=== PATIENT | male | born 1970 | race Caucasian/White ===

== ENCOUNTER 2018-01-08 17:32 | Emergency (ER) | payer OTHER ==
[2018-01-08] MEDS: KETOROLAC 30 MG INJ IM (20:47)
== END 2018-01-08 22:05 | disposition home or self-care (01) ==
LOC: FTE 17:32
DX: S99.912A Unspecified injury of left ankle, initial encounter (principal); S89.91XA Unspecified injury of right lower leg, initial encounter; X58.XXXA Exposure to other specified factors, initial encounter; Y92.39 Other specified sports and athletic area as the place of occurrence of the external cause
CPT/HCPCS: 73562; 73610; 96372; 99284-25